=== PATIENT | male | born 1960 | race Caucasian/White ===

== ENCOUNTER 2024-01-25 10:20 | Inpatient (IN) | payer BC, OTHER ==
[~2024-01-25 10:20] MED LIST: SODIUM CHLORIDE 0.9% 1,000 ML BAG ONE
[2024-01-25] MEDS ORDERED: LACTULOSE 20 GM/30 ML CUP ONE (10:25)
[2024-01-25] MEDS ORDERED: METOPROLOL TARTRATE 25 MG TAB ONE (21:22)
[2024-01-25] MEDS ORDERED: SPIRONOLACTONE 25 MG TAB ONE (21:23)
[2024-01-26] MEDS ORDERED: THIAMINE 100 MG TAB ONE (09:55)
[2024-01-26] MEDS ORDERED: METOPROLOL TARTRATE 25 MG TAB ONE ×2 (09:55→19:57)
[2024-01-26] MEDS ORDERED: MULTIVITAMINS, THERA 1 EACH TAB ONE (09:55)
[2024-01-26] MEDS ORDERED: PANTOPRAZOLE 40 MG TABLET PO ONE (09:55)
[2024-01-26] MEDS ORDERED: SPIRONOLACTONE 25 MG TAB ONE ×2 (09:55→19:56)
[2024-01-26] MEDS ORDERED: FUROSEMIDE 20 MG TAB ONE (09:56)
[2024-01-26] MEDS ORDERED: LACTULOSE 20 GM/30 ML CUP ONE ×2 (09:56→19:57)
[2024-01-26] MEDS ORDERED: FOLIC ACID 1 MG TAB ONE (09:56)
[2024-01-26] MEDS ORDERED: MAGNESIUM SULFATE-D5W PMX 200 ML IVPB ONE (17:37)
[2024-01-27] MEDS ORDERED: SPIRONOLACTONE 25 MG TAB ONE ×2 (08:43→09:00)
[2024-01-27] MEDS ORDERED: METOPROLOL TARTRATE 25 MG TAB ONE (08:44)
[2024-01-27] MEDS ORDERED: MULTIVITAMINS, THERA 1 EACH TAB ONE (08:44)
[2024-01-27] MEDS ORDERED: PANTOPRAZOLE 40 MG TABLET PO ONE (08:44)
[2024-01-27] MEDS ORDERED: FOLIC ACID 1 MG TAB ONE (08:44)
[2024-01-27] MEDS ORDERED: FUROSEMIDE 20 MG TAB ONE (08:44)
[2024-01-27] MEDS ORDERED: LACTULOSE 20 GM/30 ML CUP ONE (08:44)
[2024-01-27] MEDS ORDERED: THIAMINE 100 MG TAB ONE (08:44)
--- NOTE | 2024-02-16 15:51 | CT ---
Patient Ismael Krishnamurthy ID [id number] Order # EXAMINATION TYPE: CT angio head neck DATE OF EXAM: 01/25/2024 COMPARISON: No comparison available on downtime PACS. INDICATION: Acute mental status change DLP: 1816.1 mGycm, Automated exposure control for dose reduction was used. CONTRAST: None CT of the brain is performed utilizing 3 mm thick sections through the posterior fossa and 3 mm thick sections through the remaining calvarium. Study is performed within 24 hours of arrival to the [facility]. No abnormal hyperdensity is present to suggest an acute intracranial hemorrhage. No mass lesion is evident. No acute infarcts are evident. Periventricular white matter hypodensity is present, likely on the bas is of chronic white matter ischemic changes. Ventricles and sulci are mildly prominent for the patient age. Paranasal sinuses and mastoid air cells within the [id number] are clear. No abnormal enhancement is evident. IMPRESSION: 1. No acute intracranial process. Follow up MRI can be performed as clinically indicated. 2. Atrophy with chronic appearing mild periventricular white matter ischemic-type changes. EXAMINATION TYPE: CT angio head neck DATE OF EXAM: 01/25/2024 HISTORY: Acute mental status change COMPARISON: No comparison available on downtime PACS. CT DLP: 1816.1 mGycm. Automated Exposure Control for Dose Reduction was Utilized. TECHNIQUE: CTA scan of the neck is performed with IV Contrast, patient injected with 65 mL of Isovue 370, axial images are obtained, coronal and sagittal reformatted images are reviewed. Three-D recons tructed images are created on an independent workstation and reviewed. Source images are reviewed. FINDINGS: Carotid/Vascular Structures: There is a common origin of the right subclavian and left common carotid arteries. Common carotid arteries bifurcate into internal and external carotid arteries without significant anabell w limiting stenosis. Mild narrowing of the right internal carotid artery is present estimated at 43%. There is some mild plaquing within the left internal carotid artery without significant flow-limitin g. Vertebral arteries are codominant. Internal carotid arteries and vertebral arteries are patent to the skull base. Cervical of [place]: Vertebral basilar system appears normal. Posterior cerebral vasculature is unrema rkable. Internal carotid arteries bifurcate normally into A1 and M1 segments. A2 segments are normal. The anterior communicating artery is patent. The right posterior communicating artery is patent. The left posterior communicating artery is patent. IMPRESSION: 1. No significant flow-limiting stenosis bilateral carotid bifurcations. Atheromatous plaquing is pre sent with mild narrowing bilaterally greater on the right. 2. Normal [place] of [place] NASCET criteria was used in interpretation of this exam?
== END 2024-01-27 17:51 | disposition home or self-care (01) | DRG 441 ==
LOC: 3SCARD 10:20
PROVIDERS: ADMIT Hospitalist; ATTEND Hospitalist
DX: K76.82 Hepatic encephalopathy (principal); G93.41 Metabolic encephalopathy; E83.42 Hypomagnesemia; Z86.73 Personal history of transient ischemic attack (TIA), and cerebral infarction without residual deficits; Z91.199 Patient's noncompliance with other medical treatment and regimen due to unspecified reason
CPT/HCPCS: 70496; 70498; 93005; 99285